=== PATIENT | female | born 1965 | race African-American/Black ===

== ENCOUNTER 2018-03-21 16:36 | Emergency (ER) | payer SELFPAY ==
--- NOTE | 2018-03-21 17:59 | RAD ---
RIGHT FOOT: 03/21/18 Three views. HISTORY: Foot pain. Small enthesophytes in the plantar calcaneus. The tarsals appear intact. Metatarsals and phalanges ap pear intact. MTP and IP joints unremarkable. IMPRESSION: Small enthesophytes from the plantar calcaneus. Right foot exam otherwise unremarkable. POS: [facility]
--- NOTE | 2018-03-21 18:33 | RAD ---
RIGHT ANKLE: 03/21/18 Three views. HISTORY: Trauma with pain. Enthesophytes from the plantar calcaneus. Soft tissue swelling at the ankle. No acute fracture identi fied. IMPRESSION: No acute fracture identified. POS: [facility]
== END 2018-03-21 19:06 | disposition home or self-care (01) ==
LOC: MADERS 16:36
DX: S93.491A Sprain of other ligament of right ankle, initial encounter (principal); I10 Essential (primary) hypertension; X50.1XXA Overexertion from prolonged static or awkward postures, initial encounter

== ENCOUNTER 2018-09-08 18:25 | Emergency (ER) | payer SELFPAY ==
[2018-09-08 19:31] LABS: Anion Gap 17 mmol/L (10-20); BUN (Urea Nitrogen) 11 mg/dL (9.8-20.1); Calc. Creatinine Clearance 0 mL/min (70-130); Carbon Dioxide 21 mmol/L (22-29); Chloride 104 mmol/L (98-107); Estimated GFR-MDRD 84; Glucose 174 mg/dL (70-105); Potassium 3.2 mmol/L (3.5-5.1); Sodium 139 mmol/L (136-145)
[2018-09-08 19:38] LABS: Hemoglobin 11.4 g/dL (12.0-16.0); Mean Corpuscular HGB CONC 31.6 g/dL (32.0-36.0); Mean Corpuscular Hemoglobin 28.3 pg (27.0-31.0); Mean Corpuscular Volume 89.7 fL (78.0-98.0); Mean Platelet Volume 6.8 fL (7.4-10.4); Platelet Count 336 thou/uL (130-400); RBC Distribution Width 13.1 % (11.5-14.5); Red Blood Cell (RBC) Count 4.02 mill/uL (4.20-5.40); White Blood Cell (WBC) Count 10.3 thou/uL (4.8-10.8)
[2018-09-08 19:39] LABS: Lymphocytes 43 % (21-51); MDiff Complete? YES; Monocytes 3 % (0-10); Neutrophil 49 % (42-75); PLT Morphology Comment Appears Adequate; Reactive Lymphocytes 5 % (0-10)
--- NOTE | 2018-09-08 20:27 | RAD ---
TWO VIEWS CHEST: 09/08/18 PROVIDED CLINICAL HISTORY: Bilateral leg swelling. FINDINGS: Comparison 12/26/14. The cardiac and mediastinal silhouette is within normal limits. The lungs appear clear. There is no p leural fluid or pneumothorax apparent. IMPRESSION: No evidence for an acute cardiopulmonary process. POS: [facility]
[2018-09-08] MEDS ORDERED: Potassium Chloride 20 MEQ TAB ONE (20:33)
== END 2018-09-08 20:40 | disposition home or self-care (01) ==
LOC: MADERS 18:25
DX: M79.89 Other specified soft tissue disorders (principal); I10 Essential (primary) hypertension
CPT/HCPCS: 36415; 71046; 80048; 83880; 84484; 85025; 93005

== ENCOUNTER 2019-07-18 12:59 | Emergency (ER) | payer SELFPAY ==
[2019-07-18] MEDS ORDERED: Amlodipine 5 MG TAB ONE (14:19)
== END 2019-07-18 14:54 | disposition home or self-care (01) ==
LOC: MADERS 12:59
DX: M06.4 Inflammatory polyarthropathy (principal); I10 Essential (primary) hypertension; E11.9 Type 2 diabetes mellitus without complications; E78.5 Hyperlipidemia, unspecified; E78.00 Pure hypercholesterolemia, unspecified; Z79.899 Other long term (current) drug therapy; Z79.84 Long term (current) use of oral hypoglycemic drugs; Z79.82 Long term (current) use of aspirin
CPT/HCPCS: 36416; 96372; 99283; J1040

== ENCOUNTER 2020-09-16 10:54 | Emergency (ER) | payer SELFPAY ==
--- NOTE | 2020-09-16 12:14 | RAD ---
Exam: XR Knee Rt 4 View STANDARD HISTORY: Right knee pain. COMPARISON: None FINDINGS: Scattered osteophytes are seen. There is no joint space narrowing present. No fracture, dislocation, or other osseous abnormality is seen involving the right knee. Small suprapatellar right knee joint effusion is present. There is minimal subcutaneous edema seen an terior to the knee. IMPRESSION: 1. Small suprapatellar right knee joint effusion. 2. Mild osteoarthritis. 3. No acute osseous abnormality.
[2020-09-16] MEDS ORDERED: Amlodipine 5 MG TAB ONE (12:42)
[2020-09-16] MEDS ORDERED: Hydrochlorothiazide 25 MG TAB ONE (12:42)
== END 2020-09-16 13:05 | disposition home or self-care (01) ==
LOC: MADERS 10:54
DX: S83.206A Unspecified tear of unspecified meniscus, current injury, right knee, initial encounter (principal); I10 Essential (primary) hypertension; E11.9 Type 2 diabetes mellitus without complications; E78.5 Hyperlipidemia, unspecified; E78.00 Pure hypercholesterolemia, unspecified; W22.8XXA Striking against or struck by other objects, initial encounter; Y93.75 Activity, martial arts

== ENCOUNTER 2021-04-21 16:04 | Emergency (ER) | payer SELFPAY | END 2021-04-21 19:31 | disposition home or self-care (01) | LOC: MADERS 16:04 | DX: M25.475 Effusion, left foot (principal); M25.474 Effusion, right foot; M79.89 Other specified soft tissue disorders; E11.9 Type 2 diabetes mellitus without complications; E78.5 Hyperlipidemia, unspecified; E78.00 Pure hypercholesterolemia, unspecified; I10 Essential (primary) hypertension; Z79.899 Other long term (current) drug therapy; Z79.84 Long term (current) use of oral hypoglycemic drugs | CPT/HCPCS: 99283 ==

== ENCOUNTER 2022-04-15 14:18 | Emergency (ER) | payer BC, SELFPAY | END 2022-04-15 15:20 | disposition home or self-care (01) | LOC: MADERS 14:18 | DX: G89.29 Other chronic pain (principal); M25.572 Pain in left ankle and joints of left foot; I10 Essential (primary) hypertension; E11.9 Type 2 diabetes mellitus without complications; E78.00 Pure hypercholesterolemia, unspecified; Z79.899 Other long term (current) drug therapy ==

== ENCOUNTER 2023-07-04 11:58 | Emergency (ER) | payer BC, SELFPAY ==
[2023-07-04] MEDS ORDERED: Hydrochlorothiazide 25 MG TAB ONE (12:24)
[2023-07-04] MEDS ORDERED: Amlodipine 5 MG TAB ONE (12:24)
== END 2023-07-04 13:20 | disposition home or self-care (01) ==
LOC: MADERS 11:58
DX: I10 Essential (primary) hypertension (principal); E11.9 Type 2 diabetes mellitus without complications; E78.00 Pure hypercholesterolemia, unspecified; Z79.899 Other long term (current) drug therapy
CPT/HCPCS: 99283

== ENCOUNTER 2024-09-27 10:36 | Emergency (ER) | payer OTHER ==
[2024-09-27] MEDS ORDERED: Acetaminophen 500 MG TAB ONE (11:08)
== END 2024-09-27 11:04 | disposition home or self-care (01) ==
LOC: MADERS 10:36
DX: J01.90 Acute sinusitis, unspecified (principal); E11.9 Type 2 diabetes mellitus without complications; E78.5 Hyperlipidemia, unspecified; I10 Essential (primary) hypertension
CPT/HCPCS: 71046; 87428

== ENCOUNTER 2025-04-06 08:18 | Outpatient (CLI) | payer OTHER | END 2025-04-06 08:19 | disposition home or self-care (01) | LOC: MADRAD 08:18 | PROVIDERS: ATTEND Family Medicine | DX: M25.561 Pain in right knee (principal); I50.20 Unspecified systolic (congestive) heart failure; M17.11 Unilateral primary osteoarthritis, right knee; M25.461 Effusion, right knee | CPT/HCPCS: 71046 ==